=== PATIENT | male | born 1970 | race Caucasian/White ===

== ENCOUNTER 2016-10-09 10:24 | Emergency (ER) | payer OTHER ==
[~2016-10-09 10:24] MED LIST: HYDR-3129 PO; LYRI50CA2 PO
[2016-10-09 10:27] VITALS: BP 178/86; PULSE 82; RESP 20; TEMP 98.3; O2SAT 100
[2016-10-09] MEDS ORDERED: LYRI100C PO (10:36)
--- NOTE | 2016-10-09 10:36 | PD ---
HPI Chief Complaint: GI Complaint Time Seen by Provider: 10:35 Travel History International Travel<30 days: No Contact w/Intl Traveler<30days: No Traveled to known affect area: No History of Present Illness HPI 46-year-old male came to the emergency room complaining of dark-colored vomit and stool for past 3 days. He was also complaining of left upper quadrant pain and seemed pretty uncomfortable when he arrived to the emergency room. His vital signs were otherwise stable. Patient denies of any drinking alcohol. He says his last vomiting was earlier this morning. He has never had these kind of issues in the past. He had a colonoscopy many years ago and was told he has hemorrhoids. He says his vomit is coffee colored and his stool is dark black. [facility] Past Medical History Narrative Medical List of his past medical, surgical, social and family history was reviewed from the nursing note. Autoimmune Disease: No Cancer: No Cardiovascular Problems: No High Cholesterol: Yes Diabetes: No Diminished Hearing: No Endocrine: No Gastrointestinal Disorders: Yes (BARRETTS ESOPHAGUS) GERD: Yes Genitourinary: No Headaches: Yes Hepatitis: No Hiatal Hernia: Yes Hypertension: Yes Immune Disorder: No Implanted Vascular Access Dvce: Yes Musculoskeletal: Yes (NECK, BACK PAIN) Neurologic: Yes (LEFT HAND TINGLING) Psychiatric: Yes (SEVERE CLAUSTAPHOBIA) Reproductive: No Respiratory: No Immunizations Current: Yes Thyroid Disease: No Past Surgical History Abdominal Surgery: Yes (CARTER) AICD: No Body Medical Devices: BACK HARDWARE, BB LOCATED IN RIGHT [place]CLAV[place] REGION Joint Replacement: No Neurologic Surgery: Yes (L5-S1 FUSION X 2) Pacemaker: No Other Surgery: Yes (laminectomy L5) Social History Alcohol Use: No Tobacco Use: Yes (2-3 cigars daily) Substance Use: No Allergies-Medications (Allergen,Severity, Reaction): Coded Allergies: Tramadol (Verified Allergy, Severe, Nausea/Vomiting, 10/09/16) Azithromycin (Verified Allergy, Intermediate, rash, 10/09/16) Simvastatin (Verified Allergy, Intermediate, rash, 10/09/16) Cultivated Oat Pollen (Verified Allergy, Unknown, rash, 10/09/16) Bactrim (Verified Adverse Reaction, Severe, Nausea/Vomiting, 10/09/16) VOMITING Uncoded Allergies: "STATINS" (Adverse Reaction, Severe, SEVERE MUSCLE CRAMPING, 12/03/11) Comments List of his allergies reviewed from the nursing note. Reported Meds & Prescriptions Reported Meds & Active Scripts Active Zofran Odt (Ondansetron Odt) 4 Mg Tab 4 Mg SL Q6HR PRN Protonix (Pantoprazole Sodium) 40 Mg Tab 40 Mg PO DAILY Reported Lansoprazole 30 Mg Capdr 30 Mg PO DAILY Levothyroxine (Levothyroxine Sodium) 100 Mcg Tab 100 Mcg PO DAILY Lyrica (Pregabalin) 75 Mg Cap 75 Mg PO BID Narrative Medication List of his home medications reviewed from the nursing note. Review of Systems Except as stated in HPI: all other systems reviewed are Neg Physical Exam Narrative GENERAL: Awake, alert, obese, significant distress SKIN: Focused skin assessment warm/dry. HEAD: Atraumatic. Normocephalic. EYES: Pupils equal and round. No scleral icterus. No injection or drainage. ENT: No nasal bleeding or discharge. Mucous membranes pink and moist. NECK: Trachea midline. No JVD. CARDIOVASCULAR: Regular rate and rhythm. No murmur appreciated. RESPIRATORY: No accessory muscle use. Clear to auscultation. Breath sounds equal bilaterally. GASTROINTESTINAL: Abdomen soft, non-tender, nondistended. Hepatic and splenic margins not palpable. MUSCULOSKELETAL: No obvious deformities. No clubbing. No cyanosis. No edema. NEUROLOGICAL: Awake and alert. No obvious cranial nerve deficits. Motor grossly within normal limits. Normal speech. PSYCHIATRIC: Appropriate mood and affect; insight and judgment normal. Data Data Last Documented VS Vital Signs Date Time Temp Pulse Resp B/P Pulse Ox O2 Delivery O2 Flow Rate FiO2 10/09/16 14:13 97.8 76 17 143/78 99 10/09/16 11:35 Room Air Orders Complete Blood Count With Diff (10/09/16 10:41) Comprehensive Metabolic Panel (10/09/16 10:41) Lipase (10/09/16 10:41) Prothrombin Time / Inr (Pt) (10/09/16 10:41) Type And Screen (10/09/16 10:41) Ecg Monitoring (10/09/16 10:41) Iv Access Insert/Monitor (10/09/16 10:41) Oximetry (10/09/16 10:41) Sodium Chlor 0.9% 1000 Ml Inj (Ns 1000 M (10/09/16 10:41) Sodium Chloride 0.9% Flush (Ns Flush) (10/09/16 10:45) Pantoprazole Inj (Protonix Inj) (10/09/16 10:45) Pantoprazole Inj (Protonix Inj) (10/09/16 10:45) Sodium Chlor 0.9% 1000 Ml Inj (Ns 1000 M (10/09/16 10:45) Ct Abd/Pel W/O Iv Contrast (10/09/16 ) Metoclopramide Inj (Reglan Inj) (10/09/16 14:00) Labs Laboratory Tests Test 10/09/16 10:53 White Blood Count 9.3 TH/MM3 Red Blood Count 5.71 MIL/MM3 Hemoglobin 15.9 GM/DL Hematocrit 46.9 % Mean Corpuscular Volume 82.1 FL Mean Corpuscular Hemoglobin 27.8 PG Mean Corpuscular Hemoglobin 33.8 % Concent Red Cell Distribution Width 14.6 % Platelet Count 206 TH/MM3 Mean Platelet Volume 8.1 FL Neutrophils (%) (Auto) 69.7 % Lymphocytes (%) (Auto) 21.1 % Monocytes (%) (Auto) 7.6 % Eosinophils (%) (Auto) 1.0 % Basophils (%) (Auto) 0.6 % Neutrophils # (Auto) 6.5 TH/MM3 Lymphocytes # (Auto) 2.0 TH/MM3 Monocytes # (Auto) 0.7 TH/MM3 Eosinophils # (Auto) 0.1 TH/MM3 Basophils # (Auto) 0.1 TH/MM3 CBC Comment DIFF FINAL Differential Comment Prothrombin Time 10.9 SEC Prothromb Time International 1.0 RATIO Ratio Sodium Level 142 MEQ/L Potassium Level 3.6 MEQ/L Chloride Level 105 MEQ/L Carbon Dioxide Level 29.9 MEQ/L Anion Gap 7 MEQ/L Blood Urea Nitrogen 14 MG/DL Creatinine 1.18 MG/DL Estimat Glomerular Filtration 66 ML/MIN Rate Random Glucose 119 MG/DL Calcium Level 10.2 MG/DL Total Bilirubin 1.1 MG/DL Aspartate Amino Transf 16 U/L (AST/SGOT) Alanine Aminotransferase 24 U/L (ALT/SGPT) Alkaline Phosphatase 99 U/L Total Protein 8.2 GM/DL Albumin 4.5 GM/DL Lipase 137 U/L Blood Type A POSITIVE Antibody Screen NEGATIVE Blood Bank Comment [facility] Medical Decision Making Medical Screen Exam Complete: Yes Emergency Medical Condition: Yes Medical Record Reviewed: Yes Differential Diagnosis Upper GI bleed, lower GI bleed, acute gastritis Narrative Course 1:21 PM patient's blood test results are completely negative. His stool was Hemoccult negative which makes me surprised and really suspicious of the story. Given his history I expected melena or at least Hemoccult stool. That given everything to be within normal limits I am awaiting for the CT scan to be reported. He was given IV fluid and Protonix bolus and drip. If the CT scan is within normal limits I'll discharge him home. He'll go home with a prescription for Protonix. [facility] Point of Care Internal Pos. & Neg. Controls: Passed Fecal Specimen Occult Blood: Negative Diagnosis Primary Impression: Acute gastritis Qualified Code: K29.01 - Acute gastritis with hemorrhage, unspecified gastritis type Additional Impression: Abdominal pain Qualified Code: R10.12 - Left upper quadrant pain Referrals: Chelle Garber MD Additional Instructions: Please return to the ER if the condition worsens or any other new concerns. Otherwise take the medication as per the prescription direction. Follow-up with GI specialist was name and number been given to you. He can also follow- up with your own GI specialty you have one. Med/Other Pt SpecificInfo: Prescription(s) given Scripts Ondansetron Odt (Zofran Odt)4 Mg Tab4 Mg SL Q6HR PRN (Nausea/Vomiting) #10 TAB Ref 0 Prov:Syd Mckenna MD 10/09/16 Pantoprazole (Protonix)40 Mg Tab40 Mg PO DAILY #30 TAB Ref 0 Prov:Syd Mckenna MD 10/09/16 Disposition: 01 DISCHARGE HOME Condition: Stable Syd Mckenna MD Oct 09, 2016 10:36
[2016-10-09] MEDS ORDERED: SODIUM CHLOR 0.9% 1000 ML INJ 1,000 ML IV SCH (10:41)
[2016-10-09] MEDS ORDERED: PANTOPRAZOLE INJ 80 MG in SODIUM CHLORIDE 0.9% INJ 100 ML IV SCH (10:45)
[2016-10-09] MEDS ORDERED: SODIUM CHLOR 0.9% 1000 ML INJ 1,000 ML IV ONE (10:45)
[2016-10-09] MEDS ORDERED: PANTOPRAZOLE INJ 80 MG in SODIUM CHLORIDE 0.9% INJ 35 ML IV ONE (10:45)
[2016-10-09 10:46] VITALS: RESP 18; O2SAT 98
[2016-10-09] MEDS ORDERED: LEVO100T5 PO (10:54)
[2016-10-09] MEDS ORDERED: LANS30CA PO (10:54)
[2016-10-09] MEDS ORDERED: LYRI75CA PO (10:54)
[2016-10-09] MEDS: SODIUM CHLORIDE 0.9% FLUSH 10 ML FLUSH IVF PRN ×2 (10:56→14:00)
[2016-10-09 11:20] LABS: AUTOMATED NEUTROPHIL # 6.5 TH/MM3 (1.8-7.7); BASOPHIL # 0.1 TH/MM3 (0-0.2); BASOPHIL % 0.6 % (0.0-2.0); EOSINOPHIL # 0.1 TH/MM3 (0-0.4); HEMATOCRIT 46.9 % (39.0-51.0); HEMO FLAGS DIFF FINAL; LYMPH % 21.1 % (9.0-44.0); MEAN CELL VOLUME 82.1 FL (80.0-100.0); MEAN CORPUSCULAR HEMOGLOBIN 27.8 PG (27.0-34.0); MEAN CORPUSCULAR HGB CONC 33.8 % (32.0-36.0); MONO % 7.6 % (0.0-8.0); NEUT % 69.7 % (16.0-70.0); PLATELET COUNT 206 TH/MM3 (150-450); RED BLOOD COUNT 5.71 MIL/MM3 (4.50-5.90); RED CELL DISTRIBUTION WIDTH 14.6 % (11.6-17.2); WHITE BLOOD COUNT 9.3 TH/MM3 (4.0-11.0)
[2016-10-09 11:33] LABS: ANION GAP 7 MEQ/L (5-15); AST (GOT) 16 U/L (15-37); BICARBONATE 29.9 MEQ/L (21.0-32.0); BLOOD UREA NITROGEN 14 MG/DL (7-18); CHLORIDE 105 MEQ/L (98-107); GLOMERULAR FILTRATION RATE 66 ML/MIN (>89); POTASSIUM 3.6 MEQ/L (3.5-5.1); PROTHROMBIN TIME - PATIENT 10.9 SEC (9.8-11.6); SODIUM (NA) 142 MEQ/L (136-145)
[2016-10-09 11:35] VITALS: BP 147/87; PULSE 72; RESP 16; TEMP 97.8; O2SAT 98
[2016-10-09 11:36] LABS: ALKALINE PHOSPHATASE 99 U/L (45-117); ALT (GPT) 24 U/L (12-78); TOTAL BILIRUBIN ADULT 1.1 MG/DL (0.2-1.0)
--- NOTE | 2016-10-09 13:19 | RADRPT ---
EXAM DATE/TIME: 10/09/2016 12:41 [facility] COMPARISON: No previous studies available for comparison. INDICATIONS : Right sided abdominal pain. ORAL CONTRAST: No oral contrast ingested. RADIATION DOSE: 11.58 CTDIvol (mGy) MEDICAL HISTORY : Hypertension. Mars's esophagus, hiatal hernia SURGICAL HISTORY : Cholecystectomy. ENCOUNTER: Initial ACUITY: 1 day PAIN SCALE: 5/10 LOCATION: Right lower quadrant TECHNIQUE: Volumetric scanning of the abdomen and pelvis was performed. Using automated exposure control and ad justment of the mA and/or kV according to patient size, radiation dose was kept as low as reasonably achievable to obtain optimal diagnostic quality images. DICOM format image data is available electro nically for review and comparison. FINDINGS: Lung bases are clear. No acute findings in the liver, spleen, adrenals, left kidney or pancreas. Prev ious cholecystectomy. There is approximately 3 mm nonobstructing lower pole right renal calculus. No hydronephrosis. No free fluid. No bowel obstruction. No adenopathy. There is previous fusion across the lumbosacral junction. CONCLUSION: 1. Nonobstructing 3 mm calculus lower pole right kidney. 2. Previous cholecystectomy. 3. Previous fusion across lumbosacral junction. David Mcknight MD on October 09, 2016 at 13:07 Board Certified Radiologist. This report was verified electronically.
[2016-10-09] MEDS ORDERED: ZOFR4TAB3 SL (13:25)
[2016-10-09] MEDS ORDERED: PROT40TA PO (13:25)
[2016-10-09] MEDS ORDERED: METOCLOPRAMIDE HCL 10 MG/2 ML VIAL IV PUSH ONE (14:00)
[2016-10-09 14:13] VITALS: BP 143/78; TEMP 97.8
== END 2016-10-09 14:13 | disposition home or self-care (01) ==
LOC: NEPE 10:24
DX: K29.01 Acute gastritis with bleeding (principal); R10.12 Left upper quadrant pain; I10 Essential (primary) hypertension; E78.00 Pure hypercholesterolemia, unspecified; Z72.0 Tobacco use; Z87.19 Personal history of other diseases of the digestive system; Z87.39 Personal history of other diseases of the musculoskeletal system and connective tissue; Z86.69 Personal history of other diseases of the nervous system and sense organs; Z86.59 Personal history of other mental and behavioral disorders
CPT/HCPCS: 74176; 80053; 83690; 85025; 85610; 86850; 86900; 86901; 96365; 99285; C9113; J2765; J7030

== ENCOUNTER 2016-11-03 20:11 | Observation (INO) | payer MEDICARE, OTHER ==
[~2016-11-03] VITALS: Ht 175.3 cm; Wt 102.0 kg
[~2016-11-03 20:11] MED LIST changes: -HYDR-3129 PO; +LANS30CA PO; +LEVO100T5 PO; -LYRI50CA2 PO; +LYRI75CA PO; +PROT40TA PO; +ZOFR4TAB3 SL
[2016-11-03 20:13] VITALS: BP 189/109; PULSE 70; RESP 18; TEMP 98.4; O2SAT 99
[2016-11-03] MEDS ORDERED: PREV30CA11 PO (20:37)
[2016-11-03] MEDS ORDERED: NITROGLYCERIN 0.4 MG SL 25 TABS/BTL SL ONE (21:00)
[2016-11-03] MEDS ORDERED: ASPIRIN 325 MG TAB PO ONE (21:00)
[2016-11-03] MEDS ORDERED: SODIUM CHLORIDE 0.9% FLUSH 10 ML FLUSH IVF PRN (21:00)
--- NOTE | 2016-11-03 21:20 | PD ---
HPI Chief Complaint: Chest Pain Time Seen by Provider: 20:53 Travel History International Travel<30 days: No Contact w/Intl Traveler<30days: No Traveled to known affect area: No History of Present Illness HPI 46-year-old male that presents to the ED for evaluation of chest pain. Patient has had mid chest pain for the past day. Per patient he comes and goes. Per patient she's had some pain in the past couple months but today was the most severe. Per patient the pain was very sharp and 10 out of 10. Per patient currently he does not have as much pain but he does have a pressure-like. Per patient he does have some shortness of breath and the pain does radiate to his left arm. He denies any history of cardiac history. He does have a history of gastritis and states that he has some left-sided abdominal pain which is chronic and has not changed. He states that he does get some shortness of breath when he gets the pain. Nothing makes the pain better or worse. He denies any trauma. No recent travel. He does not take aspirin. He has a history of hypertension in the past but has not taken anything recently. Family history of heart disease. He smokes. He denies any drugs or alcohol. He does have an allergy to statins and likely has a history of cholesterol but he denies this. Pain currently is 3 out of 10. PFSH Past Medical History Autoimmune Disease: No Cancer: No Cardiovascular Problems: Yes (htn) High Cholesterol: Yes Diabetes: No Diminished Hearing: No Endocrine: No Gastrointestinal Disorders: Yes (BARRETTS ESOPHAGUS) GERD: Yes Genitourinary: No Headaches: Yes Hepatitis: No Hiatal Hernia: Yes Hypertension: Yes Immune Disorder: No Implanted Vascular Access Dvce: Yes Medical other: No Musculoskeletal: Yes (NECK, BACK PAIN) Neurologic: Yes (LEFT HAND TINGLING) Psychiatric: Yes (SEVERE CLAUSTAPHOBIA) Reproductive: No Respiratory: No Immunizations Current: Yes Thyroid Disease: No Tetanus Vaccination: < 5 Years Influenza Vaccination: Yes Past Surgical History Abdominal Surgery: Yes (CARTER) AICD: No Body Medical Devices: BACK HARDWARE, BB LOCATED IN RIGHT [place]CL[place] REGION Joint Replacement: No Neurologic Surgery: Yes (L5-S1 FUSION X 2) Pacemaker: No Other Surgery: Yes (laminectomy L5) Social History Alcohol Use: No (pt denies ) Tobacco Use: Yes (2-3 cigars daily) Substance Use: No (pt denies ) Allergies-Medications (Allergen,Severity, Reaction): Coded Allergies: tramadol (Unverified Allergy, Severe, Nausea/Vomiting, 11/03/16) azithromycin (Unverified Allergy, Intermediate, rash, 11/03/16) simvastatin (Unverified Allergy, Intermediate, rash, 11/03/16) grass pollen (Unverified Allergy, Unknown, rash, 11/03/16) sulfamethoxazole (Unverified Adverse Reaction, Severe, Nausea/Vomiting, ) VOMITING trimethoprim (Unverified Adverse Reaction, Severe, Nausea/Vomiting, ) VOMITING Uncoded Allergies: "STATINS" (Adverse Reaction, Severe, SEVERE MUSCLE CRAMPING, 12/03/11) Reported Meds & Prescriptions Reported Meds & Active Scripts Active Reported Prevacid (Lansoprazole) 30 Mg Capdr 30 Mg PO DAILY Levothyroxine (Levothyroxine Sodium) 100 Mcg Tab 100 Mcg PO DAILY Lyrica (Pregabalin) 75 Mg Cap 75 Mg PO BID Review of Systems Except as stated in HPI: all other systems reviewed are Neg Physical Exam Narrative GENERAL: SKIN: Warm and dry. HEAD: Atraumatic. Normocephalic. EYES: Pupils equal and round. No scleral icterus. No injection or drainage. ENT: No nasal bleeding or discharge. Mucous membranes pink and moist. Tongue is midline. No uvula deviation. NECK: Trachea midline. No JVD. CARDIOVASCULAR: Regular rate and rhythm. No murmurs, S3, S4. Midsternal chest pain is reproducible with touch. Left upper quadrant abdominal pain is reproducible with touch. RESPIRATORY: No accessory muscle use. Clear to auscultation. Breath sounds equal bilaterally. GASTROINTESTINAL: Abdomen soft, non-tender, nondistended. Hepatic and splenic margins not palpable. MUSCULOSKELETAL: Extremities without clubbing, cyanosis, or edema. No obvious deformities. Full range of motion of the upper and lower extremities bilaterally. 2+ pulses bilaterally. NEUROLOGICAL: Awake and alert. No obvious cranial nerve deficits. Motor grossly within normal limits. Five out of 5 muscle strength in the arms and legs. Normal speech. PSYCHIATRIC: Appropriate mood and affect; insight and judgment normal. Data Data Last Documented VS Vital Signs Date Time Temp Pulse Resp B/P (MAP) Pulse Ox O2 Delivery O2 Flow Rate FiO2 11/03/16 21:37 67 16 149/88 (108) 98 Room Air 11/03/16 20:13 98.4 Orders Orders Electrocardiogram (11/03/16 21:00) Basic Metabolic Panel (Bmp) (11/03/16 21:00) Ckmb (Isoenzyme) Profile (11/03/16 21:00) Complete Blood Count With Diff (11/03/16:00) Magnesium (Mg) (11/03/16:00) Prothrombin Time / Inr (Pt) (11/03/16:00) Act Partial Throm Time (Ptt) (11/03/16:00) Troponin I (11/03/16:00) Lipase (11/03/16:00) Chest, Single Ap (11/03/16:00) Ecg Monitoring (11/03/16:00) Bilateral Bp Monitoring (11/03/16:00) Iv Access Insert/Monitor (11/03/16:00) Oximetry (11/03/16:00) Oxygen Administration (11/03/16:00) Aspirin (Aspirin) (11/03/16 21:00) Sodium Chloride 0.9% Flush (Ns Flush) (11/03/16:00) Nitroglycerin Sl (Nitrostat Sl) (11/03/16 21:00) CKMB (11/03/16 21:00) CKMB% (11/03/16 21:00) Admit Order (Ed Use Only) (11/03/16 22:05) Labs Laboratory Tests Test 11/03/16 21:00 White Blood Count 6.3 TH/MM3 Red Blood Count 5.21 MIL/MM3 Hemoglobin 14.3 GM/DL Hematocrit 43.1 % Mean Corpuscular Volume 82.6 FL Mean Corpuscular Hemoglobin 27.4 PG Mean Corpuscular Hemoglobin Concent 33.2 % Red Cell Distribution Width 14.8 % Platelet Count 158 TH/MM3 Mean Platelet Volume 8.9 FL Neutrophils (%) (Auto) 51.9 % Lymphocytes (%) (Auto) 35.9 % Monocytes (%) (Auto) 8.8 % Eosinophils (%) (Auto) 2.6 % Basophils (%) (Auto) 0.8 % Neutrophils # (Auto) 3.3 TH/MM3 Lymphocytes # (Auto) 2.3 TH/MM3 Monocytes # (Auto) 0.5 TH/MM3 Eosinophils # (Auto) 0.2 TH/MM3 Basophils # (Auto) 0.0 TH/MM3 CBC Comment DIFF FINAL Differential Comment Prothrombin Time 10.4 SEC Prothromb Time International Ratio 0.9 RATIO Activated Partial Thromboplast Time 25.4 SEC Blood Urea Nitrogen 13 MG/DL Creatinine 1.06 MG/DL Random Glucose 90 MG/DL Calcium Level 8.8 MG/DL Magnesium Level 1.8 MG/DL Sodium Level 140 MEQ/L Potassium Level 4.0 MEQ/L Chloride Level 109 MEQ/L Carbon Dioxide Level 25.8 MEQ/L Anion Gap 5 MEQ/L Estimat Glomerular Filtration Rate 75 ML/MIN Total Creatine Kinase 210 U/L Creatine Kinase MB 1.8 NG/ML Troponin I LESS THAN 0.02 NG/ML Lipase 171 U/L MDM Medical Decision Making Medical Screen Exam Complete: Yes Emergency Medical Condition: Yes Medical Record Reviewed: Yes Interpretation(s) EKG shows sinus rhythm with no sign of acute ischemia or arrhythmia read by me and attending. CBC & BMP Diagram 11/03/16 21:00 Calcium Level 8.8, Magnesium Level 1.8 troponin and CKMB negative CXR negative Differential Diagnosis Chest pain versus atypical chest pain versus gastritis versus ACS Narrative Course 46-year-old male that presents to the ED for evaluation of chest pain. Labs and imaging were ordered. Patient does have risk factors for ACS. This includes family history, age, smoking and hypertension. Initial EKG did not show any sign of ST elevation or acute disease read by me and attending. Patient was given aspirin as well as nitroglycerin. Labs and imaging showed no sign of acute disease. Patient was reassured. Patient did go resolution of his symptoms with the nitroglycerin and aspirin. Do recommend admission for chest pain workup. Patient is in agreement with this plan. Patient states that he does want to quit smoking and he asked she has not smoked today because of the chest discomfort. He requested nicotine patch and he was given. Patient was admitted to the chest pain center. Diagnosis Primary Impression: Chest pain in adult Admitting Information Admitting Physician Requests: Observation Trae Mcneal Nov 03, 2016 21:20
[2016-11-03 21:24] VITALS: BP_SYST 163; BP_SYST 169; BP_DIAS 88; BP_DIAS 93; RESP 16; O2SAT 98
[2016-11-03 21:32] LABS: AUTOMATED NEUTROPHIL # 3.3 TH/MM3 (1.8-7.7); BASOPHIL % 0.8 % (0.0-2.0); EOSINOPHIL # 0.2 TH/MM3 (0-0.4); EOSINOPHIL % 2.6 % (0.0-4.0); HEMATOCRIT 43.1 % (39.0-51.0); HEMO FLAGS DIFF FINAL; LYMPH % 35.9 % (9.0-44.0); LYMPHOCYTE # 2.3 TH/MM3 (1.0-4.8); MEAN CELL VOLUME 82.6 FL (80.0-100.0); MEAN CORPUSCULAR HEMOGLOBIN 27.4 PG (27.0-34.0); MEAN CORPUSCULAR HGB CONC 33.2 % (32.0-36.0); MONO % 8.8 % (0.0-8.0); NEUT % 51.9 % (16.0-70.0); PLATELET COUNT 158 TH/MM3 (150-450); RED BLOOD COUNT 5.21 MIL/MM3 (4.50-5.90); RED CELL DISTRIBUTION WIDTH 14.8 % (11.6-17.2); WHITE BLOOD COUNT 6.3 TH/MM3 (4.0-11.0)
[2016-11-03 21:37] VITALS: BP 149/88; PULSE 67; RESP 16; O2SAT 98
[2016-11-03 21:44] LABS: APTT (PATIENT) 25.4 SEC (24.3-30.1); INTERNATIONAL NORMALIZED RATIO 0.9 RATIO; PROTHROMBIN TIME - PATIENT 10.4 SEC (9.8-11.6)
--- NOTE | 2016-11-03 21:50 | RADRPT ---
EXAM DATE/TIME: 11/03/2016 21:27 [facility] COMPARISON: No previous studies available for comparison. INDICATIONS : Chest pain MEDICAL HISTORY : Hypertension. Mars's esophagus, hiatal hernia SURGICAL HISTORY : Cholecystectomy. ENCOUNTER: Initial ACUITY: 1 month PAIN SCORE: 0/10 LOCATION: Bilateral chest FINDINGS: Bibasilar streakiness is noted consistent with probable atelectasis. The heart is normal. The pulmo nary vascular pattern is also normal. Hardware is noted within the lower cervical spine. CONCLUSION: Bibasilar streakiness consistent with probable atelectasis and/or fibrotic scarring. Pato Lopez MD on November 03, 2016 at 21:46 Board Certified Radiologist. This report was verified electronically.
[2016-11-03 21:57] LABS: ANION GAP 5 MEQ/L (5-15); BICARBONATE 25.8 MEQ/L (21.0-32.0); BLOOD UREA NITROGEN 13 MG/DL (7-18); CHLORIDE 109 MEQ/L (98-107); GLOMERULAR FILTRATION RATE 75 ML/MIN (>89); SODIUM (NA) 140 MEQ/L (136-145)
[2016-11-03 22:02] LABS: CREATINE KINASE 210 U/L (39-308)
[2016-11-03 22:12] LABS: MAGNESIUM 1.8 MG/DL (1.5-2.5)
[2016-11-03 22:15] LABS: CKMB 1.8 NG/ML (0.5-3.6)
[2016-11-03] MEDS ORDERED: NICOTINE 14 MG/24 HR PATCH T-DERMAL ONE (22:15)
[2016-11-03] MEDS ORDERED: ACETAMINOPHEN 500 MG CPLT PO PRN (22:15)
[2016-11-03] MEDS ORDERED: SODIUM CHLORIDE 0.9% FLUSH 10 ML FLUSH IV FLUSH PRN (22:15)
--- NOTE | 2016-11-03 22:20 | EKG ---
Date Performed: 11/03/2016 Time Performed: 20:45:06 PTAGE: 46 years EKG: Sinus rhythm NORMAL ECG NO PREVIOUS TRACING DOCTOR: Lyndsey Zaman Interpretating Date/Time 11/03/2016 22:19:55
[2016-11-03 22:41] VITALS: O2SAT 98
[2016-11-04] VITALS (7 sets, daily range): BP systolic 136–170; BP diastolic 83–103; PULSE 59–66; RESP 16–21; TEMP 97.7–98.4; O2SAT 97–99
[2016-11-04 00:56] LABS: CREATINE KINASE 160 U/L (39-308)
[2016-11-04 01:08] LABS: CKMB 1.4 NG/ML (0.5-3.6)
[2016-11-04 03:47] LABS: CREATINE KINASE 153 U/L (39-308)
[2016-11-04 04:00] LABS: CKMB 1.4 NG/ML (0.5-3.6)
--- NOTE | 2016-11-04 08:11 | HHI.HP ---
[facility] Primary Care Physician Abdullahi Talyor M.D. Chief Complaint Chest pain History of Present Illness 46-year-old male with history of hyperlipidemia, hypertension, hypothyroidism, and cervical radiculopathy presents to the emergency room for further evaluation of chest pain. Onset yesterday afternoon while walking around ip.access. Location center of chest. Characterized as a severe, sharp pain "aching I almost fell to my knees." Duration 5 seconds. Associated symptoms included shortness of breath and diaphoresis. Denied nausea or vomiting. Denies similar pain in the past. After initial episode of chest pain he used Motility Count blood pressure machine and noted blood pressure of 199/134, once home took blood pressure again and noted a blood pressure of198/130. After initial discomfort and describes a substernal dull, pressure that waxed and waned for most of the day therefore came to the ER for further evaluation. Has not taken Lyrica 2 weeks due to financial restraints. And reports increased blood pressure 2 weeks accompanied with dizziness. No loss of consciousness. Endorses a nightly headache 2 weeks relieved with Motrin and relaxing. Review of Systems General: No fatigue,weakness, fever, chills, or recent illness. Has been in his general state of health. Concern over 2 weeks increased blood pressure, intermittent dizziness, and nightly headaches. HEENT: As stated above. Denying history of migraines or frequent headaches. No vision changes, no nasal congestion or drainage. CV: As stated above. Denies any current chest pain or pressure. RESP: Occasional "smoker's cough." No SOB, sputum production, wheeze, or hemoptysis. Continues to smoke. GI: No nausea, vomiting, bowel changes, diarrhea, melena, or blood in the stool. No change in appetite, no unintentional weight gain or weight loss. : No dysuria EXT: Prescription for Lyrica due to neuropathy due to cervical fusion and past lumbar surgeries. Has not taken Lyrica in 2 weeks. MS: Chronic intermitted cervical and lumbar discomfort, reports using Motrin as needed in addition to Lyrica. No change in ROM NEURO: No difficulty with balance, LOC PSYCH: No anxiety, depression. Reports current situation stress as his sister in law and niece currently living with them. SKIN: No rashes, no concerning lesions Past Family Social History Allergies: Coded Allergies: tramadol (Verified Allergy, Severe, Nausea/Vomiting, 11/04/16) azithromycin (Verified Allergy, Intermediate, rash, 11/04/16) simvastatin (Verified Allergy, Intermediate, rash, 11/04/16) grass pollen (Verified Allergy, Unknown, rash, 11/04/16) sulfamethoxazole (Verified Adverse Reaction, Severe, Nausea/Vomiting, 11/04) VOMITING trimethoprim (Verified Adverse Reaction, Severe, Nausea/Vomiting, 11/04/16) VOMITING Uncoded Allergies: "STATINS" (Adverse Reaction, Severe, SEVERE MUSCLE CRAMPING, 12/03/11) Past Medical History Cervical disc with radiculopathy, lumbar spondylosis, cervical spinal stenosis, gastritis, hyperlipidemia (statin intolerant-not taking any medications), hypertension (reports taken off medication at age 36 has blood pressure normalized), hypothyroidism, Mars's esophagus, Holder's palsy Past Surgical History Cholecystectomy, cervical fusion, lumbar surgeries Reported Medications Active Reported Prevacid (Lansoprazole) 30 Mg Capdr 30 Mg PO DAILY Levothyroxine (Levothyroxine Sodium) 100 Mcg Tab 100 Mcg PO DAILY Lyrica (Pregabalin) 75 Mg Cap 75 Mg PO BID Active Ordered Medications Current Medications Medications (Trade) Dose Ordered Sig/Akash Route Start Time Stop Time Status Last Admin (NS Flush) 2 ml UNSCH PRN IVF 11/03/16 21:00 (NS Flush) 2 ml UNSCH PRN IV FLUSH 11/03/16 22:15 (NS Flush) 2 ml BID IV FLUSH 11/04/16 09:00 (Tylenol) 500 mg Q4H PRN PO 11/03/16 22:15 Family History Parents cardiac history unknown. He never met his father and was raised by his grandfather. Does not speak to his brother about health issues, therefore unknown. Social History No known diabetes. Remote history of hypertension. Known hyperlipidemia- statin intolerant, not taking any cholesterol medications. Current smoker 3-4 black and mild cigars/daily. Quit smoking cigarettes 10 years ago. Rare alcohol use. States he has been asked drug addict. Disabled. . Past cardiac testing None Physical Exam Vital Signs Vital Signs Date Time Temp Pulse Resp B/P (MAP) Pulse Ox O2 Delivery O2 Flow Rate FiO2 11/04/16 07:07 97 21 11/04/16 07:00 97.9 61 21 136/83 (100) 98 11/04/16 03:12 98.0 60 18 141/96 (111) 98 11/04/16 00:24 66 11/04/16 00:08 11/04/16 00:00 98.4 59 18 144/90 (108) 99 11/03/16 22:41 98 21 11/03/16 21:37 67 16 149/88 (108) 98 Room Air 11/03/16 21:24 163/93 (116) 169/88 (115) 11/03/16 21:24 98 Room Air 11/03/16 21:24 16 98 Room Air 11/03/16 20:13 98.4 70 18 189/109 (135) 99 Room Air Physical Exam GENERAL: Alert WN, WD, NAD, pleasant, moderately obese male who appears older than stated age. HEAD: NC, AT NECK: Supple, no masses, trachea midline CV: RRR, without murmur, rub, gallop, no JVD, S1-S2 no S3-S4. No carotid bruits. RESP: Clear lungs throughout bilateral, no crackles, wheeze, rhonchi, symmetrical chest rise, nonlabored, able to speak in full sentences ABD: Soft, NT, ND, no masses, positive bowel tones EXT: Pulses +24, no dependent edema MS: Normal tone 4 extremities, nontender with palpation, no obvious deformities , full range of motion NEURO: CN II through CN XII grossly intact, motor strength 5/5 PSYCH: A+O 3, pleasant affect, appropriate speech, appropriate mood and affect , insight and judgment SKIN: Normal turgor, normal texture, even hair distribution, multiple tattoos Laboratory Laboratory Tests Test 11/03/16 21:00 11/04/16 00:10 11/04/16 03:10 White Blood Count 6.3 Red Blood Count 5.21 Hemoglobin 14.3 Hematocrit 43.1 Mean Corpuscular Volume 82.6 Mean Corpuscular Hemoglobin 27.4 Mean Corpuscular Hemoglobin Concent 33.2 Red Cell Distribution Width 14.8 Platelet Count 158 Mean Platelet Volume 8.9 Neutrophils (%) (Auto) 51.9 Lymphocytes (%) (Auto) 35.9 Monocytes (%) (Auto) 8.8 Eosinophils (%) (Auto) 2.6 Basophils (%) (Auto) 0.8 Neutrophils # (Auto) 3.3 Lymphocytes # (Auto) 2.3 Monocytes # (Auto) 0.5 Eosinophils # (Auto) 0.2 Basophils # (Auto) 0.0 CBC Comment DIFF FINAL Differential Comment Prothrombin Time 10.4 Prothromb Time International Ratio 0.9 Activated Partial Thromboplast Time 25.4 Blood Urea Nitrogen 13 Creatinine 1.06 Random Glucose 90 Calcium Level 8.8 Magnesium Level 1.8 Sodium Level 140 Potassium Level 4.0 Chloride Level 109 Carbon Dioxide Level 25.8 Anion Gap 5 Estimat Glomerular Filtration Rate 75 Total Creatine Kinase 210 160 153 Creatine Kinase MB 1.8 1.4 1.4 Troponin I LESS THAN 0.02 LESS THAN 0.02 LESS THAN 0.02 Lipase 171 Result Diagram: 11/03/16 2100 11/03/162099 Imaging Last Impressions Chest X-Ray 11/03/162099 Signed Impressions: Service Date/Time: Thursday, November 03, 2016 21:27 - CONCLUSION: Bibasilar streakiness consistent with probable atelectasis and/or fibrotic scarring. Pato Lopez MD Course EKG Normal sinus rhythm, normal axis, no ST or T-segment changes Caprini VTE Risk Assessment Caprini VTE Risk Assessment: No/Low Risk (score <= 1) Caprini Risk Assessment Model Point Value = 1 Point Value = 2 Point Value = 3 Point Value = 5 Age 41-60 Minor surgery BMI > 25 kg/m2 Swollen legs Varicose veins or History of unexplained or recurrent spontaneous Oral contraceptives or hormone replacement Sepsis (< 1 month) Serious lung disease, including pneumonia (< 1 month) Abnormal pulmonary function Acute myocardial infarction Congestive heart failure (< 1 month) History of inflammatory bowel disease Medical patient at bed rest Age 61-74 Arthroscopic surgery Major open surgery (> 45 min) Laparoscopic surgery (> 45 min) Malignancy Confined to bed (> 72 hours) Immobilizing plaster cast Central venous access Age >= 75 History of VTE Family history of VTE Factor V Leiden Prothrombin [id number] Lupus anticoagulant Anticardiolipin antibodies Elevated serum homocysteine Heparin-induced thrombocytopenia Other congenital or acquired thrombophilia Stroke (< 1 month) Elective arthroplasty Hip, pelvis, or leg fracture Acute spinal cord injury (< 1 month) Prophylaxis Regimen Total Risk Factor Score Risk Level Prophylaxis Regimen 0-1 Low Early ambulation 2 Moderate Order ONE of the following: *Sequential Compression Device (SCD) *Heparin 5000 units SQ BID 3-4 Higher Order ONE of the following medications: *Heparin 5000 units SQ TID *Enoxaparin/Lovenox 40 mg SQ daily (WT < 150 kg, CrCl > 30 mL/min) *Enoxaparin/Lovenox 30 mg SQ daily (WT < 150 kg, CrCl > 10-29 mL/min) *Enoxaparin/Lovenox 30 mg SQ BID (WT < 150 kg, CrCl > 30 mL/min) AND/OR *Sequential Compression Device (SCD) 5 or more Highest Order ONE of the following medications: *Heparin 5000 units SQ TID (Preferred with Epidurals) *Enoxaparin/Lovenox 40 mg SQ daily (WT < 150 kg, CrCl > 30 mL/min) *Enoxaparin/Lovenox 30 mg SQ daily (WT < 150 kg, CrCl > 10-29 mL/min) *Enoxaparin/Lovenox 30 mg SQ BID (WT < 150 kg, CrCl > 30 mL/min) AND *Sequential Compression Device (SCD) Assessment and Plan Assessment and Plan #1 Atypical chest pain-admitted to chest pain center. Ruled out with 3 sets of EKGs, cardiac enzymes, monitor overnight. Seen and evaluated by Dr. Deven Mckeon. Proceed with chemical stress test. If unremarkable, with discharged this afternoon with follow-up with PCP. #2 Hypertension- Blood pressure within normal range during admission, continue to monitor. Encouraged keeping blood pressure log in taking to next PCP appointment. Instructed on a low sodium diet and stress reduction activities. Discussed possibility daily headaches may be related to blood pressure. #3 Tobacco use-strongly encouraged and stressed the importance of tobacco sensation. Encouraged him to quit smoking cigars. #4 Hypothyroidism-chronic, continue levothyroxine #5 GERD-chronic, continue Lansoprazole #6 Cervical radiculopathy accompanied with neuropathy-continue Lyrica. Follow- up with PCP. 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 Jessica Talley Nov 04, 2016 08:11
[2016-11-04] MEDS ORDERED: NITROGLYCERIN 0.4 MG SL 25 TABS/BTL SL PRN (08:15)
[2016-11-04] MEDS ORDERED: SODIUM CHLORIDE 0.9% FLUSH 10 ML FLUSH IV FLUSH SCH (09:00)
[2016-11-04] MEDS ORDERED: ASPIRIN 325 MG TAB PO SCH (09:00)
[2016-11-04] MEDS ORDERED: ALPRAZolam 0.5 MG TAB PO ONE (10:45)
[2016-11-04] MEDS ORDERED: LEVOTHYROXINE SODIUM 100 MCG TAB PO SCH ×2 (11:15→12:00)
--- NOTE | 2016-11-04 11:51 | EKG ---
Date Performed: 11/04/2016 Time Performed: 03:01:38 PTAGE: 46 years EKG: Sinus rhythm NONSPECIFIC T-WAVE ABNORMALITY BORDERLINE ECG PREVIOUS TRACING : 11/04/2016 00.12 Compared to prior tracing no significant change DOCTOR: Lyndsey Zaman Interpretating Date/Time 11/04/2016 11:50:53
--- NOTE | 2016-11-04 11:53 | EKG ---
Date Performed: 11/04/2016 Time Performed: 00:12:31 PTAGE: 46 years EKG: Sinus rhythm NONSPECIFIC T-WAVE ABNORMALITY BORDERLINE ECG PREVIOUS TRACING : 11/03/2016 20.45 Compared to prior tracing no significant change DOCTOR: Lyndsey Zaman Interpretating Date/Time 11/04/2016 11:52:27
[2016-11-04] MEDS ORDERED: PANTOPRAZOLE SOD 40 MG DELAYED RELEASE TAB PO SCH (12:00)
[2016-11-04] MEDS ORDERED: PREGABALIN 75 MG CAP PO SCH (13:30)
[2016-11-04] MEDS ORDERED: REGADENOSON INJ 0.4 MG/5 ML SYR ONE (14:32)
--- NOTE | 2016-11-04 15:55 | RADRPT ---
EXAM DATE/TIME: 11/04/2016 13:52 [facility] COMPARISON: No previous studies available for comparison. INDICATIONS : Chest pain for 1 day. Angina. DOSE: 35 mCi Tc99m Myoview at stress. 11 mCi Tc99m Myoview at rest. 0.4 mg Lexiscan STRESS SYMPTOMS: Short of breath, left chest pain and neck pain. EJECTION FRACTION: 57% MEDICAL HISTORY : Hypertension. Smoker. SURGICAL HISTORY : Inguinal hernia repair. ENCOUNTER: Initial ACUITY: 1 day PAIN SCALE: 3/10 LOCATION: Bilateral chest TECHNIQUE: The patient underwent pharmacologic stress with infusion of prescribed dose. Continuous ECG tracing was monitored during stress. Gated SPECT imaging was performed after stress and conventional SPECT i maging was performed at rest. The examination was performed on a SPECT/CT scanner, both attenuation and non-corrected datasets were reviewed. FINDINGS: DISTRIBUTION: The maximum perfused segment at stress is in the lateral wall. PERFUSION STUDY: The pattern of perfusion at stress is within normal limits. There is gastric and liver activity. GATED STUDY: There is intact wall motion and thickening without hypokinetic or dyskinetic segments. CONCLUSION: Within normal limits. No stress-induced ischemia or abnormal wall motion demonstrated . RISK CATEGORY: Low Zhang Mccarty MD on November 04, 2016 at 15:51 Board Certified Radiologist. This report was verified electronically.
--- NOTE | 2016-11-04 16:05 | HHI.DCPOC ---
Discharge Care Plan Diagnosis: (1) Atypical chest pain (2) Tobacco abuse Goals to Promote Your Health * To prevent worsening of your condition and complications * To maintain your health at the optimal level Directions to Meet Your Goals Take your medications as prescribed Follow your dietary instruction Follow activity as directed Keep your appointments as scheduled Take your immunizations and boosters as scheduled If your symptoms worsen call your PCP, if no PCP go to Urgent Care Center or Emergency Room Smoking is Dangerous to Your Health. Avoid second hand smoke Call the 24-hour hour crisis hotline for domestic abuse at Jessica Talley Nov 04, 2016 16:05
--- NOTE | 2016-11-05 12:06 | TR ---
Date Performed: 11/04/2016 Time Performed: 14:52:37 DOCTOR: Deven Mckeon DRUG LIST: CLINICAL HISTORY: REASON FOR TEST: REASON FOR ENDING: OBSERVATION: CONCLUSION: Lexiscan stress test was performed under standard four minute protocol. Radionuclid e was injected one minute prior to ending the test. No electrocardiographic abormalities were present to suggest ischemia. Nuclear imaging and interpretation are pending. COMMENTS:
== END 2016-11-04 16:50 | disposition home or self-care (01) ==
LOC: NEPE 20:11 → NEDA 22:07 → NEPFCDU 23:55
PROVIDERS: ADMIT Internal Medicine Cardiovascular Disease; ATTEND Internal Medicine Cardiovascular Disease
DX: R07.89 Other chest pain (principal); I10 Essential (primary) hypertension; R94.31 Abnormal electrocardiogram [ECG] [EKG]; E78.5 Hyperlipidemia, unspecified; E03.9 Hypothyroidism, unspecified; F17.290 Nicotine dependence, other tobacco product, uncomplicated
CPT/HCPCS: 71010; 78452; 80048; 82550; 82552; 83690; 83735; 84484; 85025; 85610; 85730; 93005; 93017; 99285; A9502; G0378; J2785